=== PATIENT | female | born 1985 | race Caucasian/White ===

== ENCOUNTER 2020-02-11 13:06 | Emergency (ER) | payer OTHER ==
[2020-02-11 13:34] VITALS: O2SAT 98
[2020-02-11] MEDS ORDERED: TORAdol 30 mg Injection ONE (13:35)
[2020-02-11] MEDS: TORAdol 30 mg Injection IM ONE (13:38)
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
[2020-02-11 14:28] VITALS: BP 106/63; PULSE 76
== END 2020-02-11 14:35 | disposition home or self-care (01) ==
LOC: ED 13:06
DX: S50.01XA Contusion of right elbow, initial encounter (principal); G44.309 Post-traumatic headache, unspecified, not intractable; V43.62XA Car passenger injured in collision with other type car in traffic accident, initial encounter; Y93.9 Activity, unspecified; Y92.410 Unspecified street and highway as the place of occurrence of the external cause; M79.601 Pain in right arm; R20.0 Anesthesia of skin
CPT/HCPCS: 70450; 73080; 96372; 99285; J1885